=== PATIENT | male | born 1985 | race Caucasian/White ===

== ENCOUNTER 2018-02-22 17:33 | Emergency (ER) | payer SELFPAY ==
[~2018-02-22] VITALS: Ht 172.7 cm; Wt 87.0 kg
[2018-02-22 17:39] VITALS: TEMP 36.9; Ht 172.7 cm; Wt 87.0 kg
[2018-02-22 18:30] VITALS: BP 120/83; PULSE 103; O2SAT 96
--- NOTE | 2018-02-22 18:45 | EMERGENCY ROOM VISIT NOTE ---
History First contact with patient: 17:56 (Anil Arroyo PA) First contact with patient: 17:56 (Conrad Chiu M.D.) Chief Complaint: EAR WAX Stated Complaint: RT EAR CLOGGED History of Present Illness The patient is a 33 year old male who presents to the Emergency Room with complaints of muffled hearing in the right ear. The patient believes that he has earwax packed in the ear. He did try to clean the ear with a Q-tip without success. The patient works for a [employer], and wears hard earplugs throughout most of his shift. The patient has not noticed any drainage or bleeding from the ear. He denies any recent runny nose, congestion, sore throat or cough. He denies any prior history of cerumen impaction. He denies pain. (Anil Arroyo PA) Review of Systems 10 system review was performed and was negative except for pertinent positives and negatives as indicated in history of present illness (Anil Arroyo PA) Past Medical/Surgical History Medical Problems: (1) Tobacco Use Disorder Surgical Problems: (1) No history of previous surgery (Conrad Chiu M.D.) Family History Unremarkable (Anil Arroyo PA) Social History Smoking Status: Current Every Day Smoker Alcohol Use: occasionally Marital Status: single Occupation Status: employed (Anil Arroyo PA) Current/Historical Medications No Active Prescriptions or Reported Meds Physical Exam Vital Signs Date Time Temp Pulse Resp B/P (MAP) Pulse Ox O2 Delivery O2 Flow Rate FiO2 02/22/18 18:30 103 20 120/83 96 02/22/18 17:39 36.9 103 20 120/83 96 Room Air (Conrad Chiu M.D.) Physical Exam CONSTITUTIONAL: Healthy and well nourished. Alert and oriented X 3 with positive affect. Patient does not appear in any acute distress. HEENT: Normocephalic, atraumatic. Pupils equal, round and reactive. Examination of left ear shows normal anatomy without any evidence for cerumen or TM erythema, bulging or air-fluid levels. Examination of the right ear shows desiccated cerumen immediately adjacent to the TM. It fills the entire auditory canal. The TM cannot be visualized. There is no adjacent canal erythema or edema. NECK: Full active range of motion without discomfort. MUSCULOSKELETAL: Full range of motion of all joints without discomfort. INTEGUMENTARY: No rash or other significant dermatologic conditions noted. NEUROLOGIC: No focal neurologic deficits noted. (Anil Arroyo PA) Medical Decision & Procedures ED Course Patient history and physical exam were performed. Nurse's notes were reviewed. Vital signs were reviewed and were normal. The patient was advised that the cerumen is immediately adjacent to the TM, and is quite desiccated. Because it is so close to the TM, I explained that pressure irrigation certainly would increase his risk for TM perforation. I did suggest applying some Debrox or liquid Colace to the ear, and allowing the ear to soak for at least 30 minutes prior to irrigation. The patient reports that he would rather treat this at home as he does not want to wait that period of time. He wanted to know if there was another eardrop that he could use at home. He was encouraged to go to the pharmacy and ask for Debrox. He may have to purchase an ear irrigation kit, which would also have a bulb syringe. He was encouraged to lay on his left side, allowing the softener to work for at least 45-60 minutes. He was encouraged to do this twice daily over the next 3 days, then attempt irrigation with warm water. He was encouraged to follow-up with his PCP or return to the emergency department as needed if he is unable to irrigate the wax out of the ear. The patient was happy with this plan of care, and denied any pain at the time of discharge. (Anil Arroyo PA) Medical Decision (Anil Arroyo PA) Medication Reconcilliation Current Medication List: was personally reviewed by me (Anil Arroyo PA) Blood Pressure Screening Patient's blood pressure: Normal blood pressure (Anil Arroyo PA) Impression Primary Impression: Impacted cerumen of right ear Departure Information Dispostion Home / Self-Care Prescriptions No Active Prescriptions or Reported Meds Forms HOME CARE DOCUMENTATION FORM, IMPORTANT VISIT INFORMATION Patient Instructions My [facility] Additional Instructions Go to the drug store and purchase an earwax softener (Debrox) or purchase an ear irrigation kit that has ear wax softener in it. Apply drops in the right ear, and lay on your left side for an hour to soften the wax. Recommend doing this twice daily for the next 3 days. Then use the ear bulb suction, fill with WARM water, and irrigate ear. You may follow-up with your family doctor, or return to the emergency department if you are not able to remove the wax.
== END 2018-02-22 18:30 | disposition home or self-care (01) ==
LOC: C.EDB 17:35 → C.EDD 18:30
DX: H61.21 Impacted cerumen, right ear (principal); F17.200 Nicotine dependence, unspecified, uncomplicated